=== PATIENT | female | born 1965 | race Hispanic/Latino ===

== ENCOUNTER 2023-03-28 09:04 | Emergency (ER) | payer OTHER ==
[~2023-03-28] VITALS: Ht 154.9 cm; Wt 68.0 kg
[2023-03-28 09:06] VITALS: BP 147/80
[2023-03-28] MEDS ORDERED: HYDROCODONE/ACETAMINOPHEN 5/325 MG TAB PO ONE (10:30)
[2023-03-28] MEDS ORDERED: KETOROLAC 60 MG VIAL (30MG/ML) IM ONE (10:30)
[2023-03-28] MEDS ORDERED: CYCL5TAB PO (11:41)
[2023-03-28] MEDS ORDERED: LIDOP TP (11:41)
[2023-03-28] MEDS ORDERED: IBUP-2070 PO (11:41)
[2023-03-28] MEDS ORDERED: METH4TAB3 PO (11:41)
== END 2023-03-28 11:51 | disposition home or self-care (01) ==
LOC: EDH 09:04
DX: S30.0XXA Contusion of lower back and pelvis, initial encounter (principal); S39.012A Strain of muscle, fascia and tendon of lower back, initial encounter; S80.02XA Contusion of left knee, initial encounter; E11.9 Type 2 diabetes mellitus without complications; Z90.49 Acquired absence of other specified parts of digestive tract; Z90.710 Acquired absence of both cervix and uterus; Z79.52 Long term (current) use of systemic steroids; W18.39XA Other fall on same level, initial encounter; Y93.89 Activity, other specified; Y92.89 Other specified places as the place of occurrence of the external cause; Y99.8 Other external cause status
CPT/HCPCS: 99285; 72131; 73560; 96372; J1885